=== PATIENT | male | born 1935 | race Caucasian/White ===

== ENCOUNTER 2016-08-15 09:38 | Emergency (ER) | payer OTHER, BC ==
[~2016-08-15] VITALS: Ht 177.8 cm; Wt 98.4 kg
[2016-08-15 09:45] VITALS: BP 137/65
[2016-08-15 12:02] LABS: CALCIUM 8.9 mg/dL (8.5-10.1); CARBON DIOXIDE 29.7 mmol/L (21-32); CHLORIDE SERUM 94 mmol/L (98-107); CREATININE SERUM 1.1 mg/dL (0.7-1.3); GLUCOSE SERUM 114 mg/dL (74-106); POTASSIUM SERUM 3.4 mmol/L (3.5-5.1); SODIUM SERUM 131 mmol/L (136-145)
[2016-08-15 12:05] LABS: PLATELET COUNT 215 x10^3mcL (130-400); RED CELL DISTRIBUTION WIDTH 13.1 % (11.5-14.5)
[2016-08-15 12:07] LABS: ALKALINE PHOSPHATASE 189 U/L (46-116); ALT/SGPT 58 U/L (16-63); AST/SGOT 42 U/L (15-37); BILIRUBIN TOTAL 1.6 mg/dL (0.20-1.00); MAGNESIUM 1.7 mg/dL (1.8-2.4); TOTAL PROTEIN, SERUM 7.5 g/dL (6.4-8.2)
[2016-08-15 12:19] LABS: BASOPHIL % 0 % (0-2)
== END 2016-08-15 13:49 | disposition home or self-care (01) ==
LOC: ED 09:38
PROVIDERS: Emergency Medicine
DX: J18.9 Pneumonia, unspecified organism (principal); J98.01 Acute bronchospasm; K21.9 Gastro-esophageal reflux disease without esophagitis; I10 Essential (primary) hypertension; Z88.0 Allergy status to penicillin
CPT/HCPCS: 83880; 87804